=== PATIENT | male | born 1960 | race Caucasian/White ===

== ENCOUNTER → 2021-01-09 10:54 | Outpatient (BNVA) | payer OTHER, SELFPAY | PROVIDERS: Visit Provider Specialist | DX: G56.03 Carpal tunnel syndrome, bilateral upper limbs (principal); R20.0 Anesthesia of skin | CPT/HCPCS: 95910 ==

== ENCOUNTER → 2022-05-03 14:15 | Outpatient (BNVA) | payer OTHER, SELFPAY | PROVIDERS: Visit Provider Surgery | DX: K40.90 Unilateral inguinal hernia, without obstruction or gangrene, not specified as recurrent (principal) | CPT/HCPCS: 99203 ==

== ENCOUNTER 2022-05-29 06:58 | Day surgery (SDC) | payer OTHER, SELFPAY ==
[2022-05-28 09:01] VITALS: BMI 28.7
[2022-05-29] VITALS (10 sets, daily range): BP systolic 131–175; BP diastolic 70–99; PULSE 65–72; RESP 8–19; TEMP 36.1–36.6; O2SAT 90–97
[2022-05-29] MEDS: sodium chloride 0.9% 1,000 ML 30 ML IV (07:46)
[2022-05-29] MEDS: heparin 5,000 unit/mL INJ 1 mL 2000 UNIT SUBCUT (07:47)
[2022-05-29] MEDS: diphenhydrAMINE 50 mg/mL SDV 1mL 12.5 MG IVP (07:48)
[2022-05-29] MEDS: acetaminophen 1,000 MG/100 ML PIGGYBACK 400 MG IV (07:48)
--- NOTE | 2022-05-29 08:06 | ANES.PREANE2 ---
Pre-Anesthetic Assessment Height/Weight: Height 1.78 m Weight 90.718 kg Temp Pulse Resp BP Pulse Ox O2 Del Method 97.2 F L 66 16 156/99 97 05/29/22 07:25 05/29/22 07:25 05/29/22 07:25 05/29/22 07:25 05/29/22 07:25 05/29/22 07:31 Preop Diagnosis: Left groin hernia Operation Date: 05/29/22 09:05 Proposed Procedures p lap left inguinal hernia repair K40.90 [id number](Left) - Trey Colbert MD Familial anesthetic complications: None Was Beta Denise taken within 24 hours: N/A Was Clonidine taken within 24 hours: N/A Last intake: Intake Last Liquid Date 05/28/22 Last Liquid Time 20:00 Last Solid Date 05/28/22 Last Solid Time 19:00 Social No alcohol and No tobacco Exam alert, oriented x 3, clear to auscultation bilaterally and regular rate & rhythm Airway Mallampati: Class III Dentition: other (missing) CV/HEM Hypertension Anesthetic Plan ASA status: 2 Anesthesia: General Risk of > 500 ml blood loss (7ml/kg in children): No Medications/Allergies Home Medications Medication Instructions Recorded Confirmed Last Taken Type amlodipine 5 mg tablet 5 mg PO DAILY 05/03/22 05/29/22 05/28/22 History venlafaxine 75 mg capsule,extended 75 mg PO DAILY 05/03/22 05/29/22 05/28/22 History release 24 hr Allergies Allergy/AdvReac Type Severity Reaction Status Date / Time indomethacin Allergy Intermediate bruising/ag Verified 05/29/22 07:21 gitated atorvastatin [From Lipitor] Allergy Swelling Verified 05/29/22 07:21 Current Medications Generic Name Dose Route Start Last Admin Trade Name Freq PRN Reason Stop Dose Admin Sodium Chloride 1,000 mls @ 30 mls/hr 05/29/22 07:30 05/29/22 07:46 Sodium Chloride 0.9% IV 05/30/22 07:29 30 mls/hr .Q24H SONNY Administration PFSH Anesthesia Social History Smoking and tobacco status: former smoker Data Anesthesia Cardiac Studies: No Data to Display
--- NOTE | 2022-05-29 08:58 | W.PM.OPSUD ---
Surgery/Procedure H&P Update DATE OF PROCEDURE: May 29, 2022 DATE H&P PERFORMED: 05/03/22 H&P UPDATE INFORMATION: I have reviewed H&P completed within last 30 days, I have examined patient prior to procedure and No changes to prior documentation PREOP DIAGNOSIS: Left groin hernia PRIMARY INDICATION FOR PROCEDURE: The same PLANNED PROCEDURE: Operation Date: 05/29/22 09:05 Proposed Procedures p lap left inguinal hernia repair K40.90 [id number](Left) - Trey Colbert MD
[2022-05-29] MEDS: ceFAZolin 2,000 MG in sodium chloride 0.9% (plus) 50 ML 100 MG IV (09:18)
--- NOTE | 2022-05-29 11:01 | PM.OP ---
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 Time-out was done verifying the patient's name/date of /planned procedure destination after the procedure, all were in agreement. SCDs confirmed to be functioning, preoperative antibiotics administered per protocol, and beta hannah protocol was confirmed. A vertical skin incision of 1.2 cm was made with 11 blade knife through the supra umbilicus , incision was carried down to the subcutaneous tissue and deepened to identify the anterior fascia, two stay sutures were applied to the fascia, and safe entrance to the abdominal cavity was achieved, a Millard trocar technique safe entry to the abdominal cavity was achieved verified by using 10 mm zero degree laparoscopy, switched to a 30 degrees scope,low flow followed by a higher flow of CO2 gas up to 15 mmHg. There was no evidence of injury to intra-abdominal structures from the port entry, attention was deviated to both groins, there was a large indirect hernia defect with herniation of peritoneum and preperitoneal fat was noted on the left side, two 5 mm ports were placed on the right and left lateral aspect of the abdomen slightly above the level of the umbilicus, under direct visualization, Exparel Was used at the site of the incisions Prior to trocar insertions. The peritoneum above the level of the iliopubic tract was incised to the Left of the midline and dissection was performed to create a preperitoneal space medial to lateral aspect up to anterior superior iliac spine on the Left side. Dissection was continued onto the medial aspect and the Left spermatic was identified, there was evidence of indirect inguinal hernia the sac was dissected. As it applied medial to the Left inferior epigastric vessels/ dissection was performed to clear the space lateral to the spermatic cord and dorsomedial to it, the hernia sac was reduced and retracted far back, so there was an evidence of a small direct inguinal hernia that was dissected in addition to lipoma of the cord that was excised and sent for permanent pathology. Then a large Left 3-D mesh was rolled and placed into the abdominal cavity through the Millard port, after the mesh was introduced it was positioned to lie in the myopectineal orifice and the mesh was unrolled and this covered the entire my myope pectineal orifice. Intra-abdominal pressure was dropped to 12 mmHg to help placement of the mesh good position On the lateral aspect of the mesh extended up to the anterior superior iliac spine on the medial aspect the mesh crossed the midline onto the Right side, then using absorbable tacks, placed above the iliopubic tract onto the rectus abdominis muscle on the medial aspect and also to the lateral abdominal wall superomedial to the sacroiliac spine, then the mesh was also anchored to the pubis and the Indra's ligament inferiorly. The peritoneal leaflets were then brought together to cover the mesh and isolated from the other viscera, extra tacks were used to secure the peritoneum in good position. There was serosal attachments of the sigmoid colon to the peritoneum that was taken down using sharp dissection,Oozing was appreciated onto the colonic wall so a [id number] 2-0 silk sutures was done under direct visualization for hemostasis. Final look demonstrated good hemostasis and the mesh in good position. A total of 20 mL Exparel 40 ml Normal saline 20 ml bupivacaine 0.25% were injected at the remaining of the tacks site and trocar sites as well Final look demonstrated good hemostasis.Then the fascia on the supra umbilical fascial defect was closed using #1 PDS sutures under direct visualization using fascial closure device Arvin Mathew.All ports were removed,then the abdomen was desufflated. All skin incisions were closed with 4-0 Monocryl subcuticular suture and Dermabond was applied. The patient tolerated the procedure well, Pelletier catheter was taken out ,got extubated and was transferred to the recovery area in stable condition All counts of instruments, needles and sponges were completed I was present for the whole entire procedure
[2022-05-29] MEDS: HYDROcodone-acetaminophen 5-325 mg Tablet 1 TAB PO (11:53)
--- NOTE | 2022-05-29 16:22 | ANE.PACU2 ---
Inpatient post-anesthesia follow up: Airway intact: Yes Vital signs: Temperature 97.3 F Pulse Rate 70 Respiratory Rate 18 Blood Pressure 152/92 Pulse Oximetry 94 Oxygen Delivery Me thod Room Air Oxygen Flow Rate 8 Fraction of Inspir ed Oxygen Hydration adequate: Yes Nausea and vomiting: No Pain level: 1 Mental status: Baseline
== END 2022-05-29 12:20 | disposition home or self-care (01) ==
PROVIDERS: Visit Provider Surgery
PROC: (CPT 49650; principal; 2022-05-29 08:55)
DX: K40.90 Unilateral inguinal hernia, without obstruction or gangrene, not specified as recurrent (principal); D17.6 Benign lipomatous neoplasm of spermatic cord; I10 Essential (primary) hypertension; Z87.891 Personal history of nicotine dependence
CPT/HCPCS: 49505; 51702; 88304; C1781; C9290; J0131; J0690; J1100; J1170; J1200; J1644; J2405; J2704; J2710; J3010; J3490; J7030

== ENCOUNTER → 2022-06-04 13:35 | Outpatient (BNVA) | payer OTHER, SELFPAY | PROVIDERS: PCP Family Medicine; Visit Provider Surgery | DX: Z09 Encounter for follow-up examination after completed treatment for conditions other than malignant neoplasm (principal) | CPT/HCPCS: 99024 ==

== ENCOUNTER 2023-08-23 12:58 | Outpatient (CLI) | payer OTHER, SELFPAY ==
--- NOTE | 2023-08-23 13:04 | MR_ITS ---
WS: [id number] MRI CERVICAL SPINE NONCONTRAST HISTORY: CERVICAL RADICULOPATHY COMPARISON: None available. Technique: Multiplanar, multisequence noncontrast imaging of the cervical spine. Normal cervical alignment with no compression fracture or significant disc space narrowing. Signal within the cervical cord is normal. Visualized posterior fossa is unremarkable. Craniocervical junction, C1 and C2 relationship, odontoid process and soft tissues are normal. C2-C3: Small foraminal osteophytes and facet arthritis. Mild LEFT foraminal narrowing. C3-C4: Mild annular disc bulging with osteophytic ridging and foraminal osteophytes. Mild central and bilateral foraminal stenosis. Small amount of marrow edema in the RIGHT C4 inferior articular facet. C4-C5: Mild disc bulging and facet arthritis. There is a small amount of marrow edema in the RIGHT C5 inferior articular facet. Small amount of fluid in the perifacet location on the RIGHT at C4-5. C5-C6: Diffuse osteophytic ridging with a central disc protrusion. Effacement of CSF and osteophytic ridging. Bilateral facet joint arthritis. Moderate central with moderate to severe bilateral foramina l stenosis. C6-C7: Osteophytic ridging with disc bulging and a central disc protrusion. Mild central and bilatera l foraminal stenosis. C7-T1: Normal. Paraspinal soft tissue are normal. IMPRESSION: 1. No acute vertebral body fractures. 2. C5-6: Moderate central with moderate to severe bilateral foraminal stenosis due to disc, osteophy te and facet disease. 3. C3-4 and C6-7: Mild central and bilateral foraminal stenosis. 4. Marrow edema in the RIGHT inferior articulating facets of C4 and C5 with perifacet edema. May be posttraumatic or related to synovitis. No fracture identified by MRI.
== END 2023-08-23 12:59 | disposition home or self-care (01) ==
LOC: RAD 12:58
PROVIDERS: PCP Family Medicine; Visit Provider Family Medicine
DX: M48.02 Spinal stenosis, cervical region (principal); M50.122 Cervical disc disorder at C5-C6 level with radiculopathy; M25.78 Osteophyte, vertebrae; G95.19 Other vascular myelopathies
CPT/HCPCS: 72141

== ENCOUNTER → 2023-09-24 11:05 | Outpatient (BNVA) | payer OTHER, SELFPAY | PROVIDERS: PCP Family Medicine; Referring Provider Family Medicine; Visit Provider Specialist | DX: R55 Syncope and collapse (principal); R26.9 Unspecified abnormalities of gait and mobility; M48.062 Spinal stenosis, lumbar region with neurogenic claudication; M54.2 Cervicalgia; R29.90 Unspecified symptoms and signs involving the nervous system; M47.12 Other spondylosis with myelopathy, cervical region | CPT/HCPCS: 99205 ==

== ENCOUNTER 2023-10-24 13:42 | Outpatient (CLI) | payer OTHER, SELFPAY ==
--- NOTE | 2023-10-24 14:45 | MR_ITS ---
WS: [id number] MRI HEAD WITHOUT CONTRAST TECHNIQUE: Sagittal T1, T2 axial, T2 axial FLAIR, axial and coronal T1 images, axial susceptibility w eighted imaging, axial diffusion weighted images, and coronal T2 images were obtained. CLINICAL INFORMATION: R55 - Syncope and collapse COMPARISON: None. FINDINGS: No evidence of restricted diffusion to suggest acute ischemia. Ventricular system and basal cisterns are patent. Moderate small vessel changes. Mild/moderate parenchymal volume loss. Small vessel change s in the liang. Normal posterior fossa. Normal vascular flow voids at the skull base. No extra-axial f luid collections. No evidence of mass or mass effect. Paranasal sinuses are well aerated. Mastoid air cells are well aerated. Normal posterior nasopharynx. No hemosiderin on the susceptibility weighted images. Moderate symmetric atrophy temporal lobes and h ippocampal formations. Normal optic chiasm and pituitary infundibulum. IMPRESSION: 1. No evidence of restricted diffusion to suggest acute ischemia. 2. Moderate small vessel changes with mild to moderate parenchymal volume loss. 3. Small vessel changes in the liang. 4. Moderate symmetric atrophy temporal lobes and hippocampal formations. 5. No hemosiderin on susceptibility-weighted images. 6. No other acute findings.
--- NOTE | 2023-10-24 15:30 | MR_ITS ---
WS: [id number] MRI LUMBAR SPINE NONCONTRAST TECHNIQUE: Sagittal T1, T2 and STIR imaging. Axial T1 and T2 imaging. CLINICAL INFORMATION: M48.062 - Spinal stenosis, lumbar region with neurogenic ... COMPARISON: None. FINDINGS: Mild lumbar curve. No acute compression. Disc bulging worse at L2-3. Disc space narrowing worse at L4 -5. L1-L2: Mild annular bulging. Slight narrowing RIGHT subarticular recess. Mild facet arthropathy. Mild RIGHT foraminal narrowing. LEFT foramen is patent. L2-L3: Mild disc bulging with mild to moderate narrowing of the thecal sac. Moderate facet arthropath y and ligamentum flavum hypertrophy with prominent epidural fat. Mild to moderate LEFT and no signifi cant RIGHT foraminal narrowing. Endplate Schmorl's node L2. L3-L4: Mild disc bulging with narrowing of the subarticular recess bilaterally. Prior laminectomy def ects. Moderate facet arthropathy. Small bilateral foraminal protrusions with mild bilateral foraminal narrowing. L4-L5: Mild annular bulging. Moderate central canal stenosis with impingement on the traversing RIGHT greater than LEFT L5 nerve roots in the subarticular recess. Moderate facet arthropathy with ligamen epifanio flavum hypertrophy. Remote laminectomy defects. RIGHT foraminal protrusion impinges the exiting R IGHT L4 nerve root with mild to moderate RIGHT foraminal narrowing. LEFT foramen is patent. L5-S1: Mild annular bulging. Slight effacement of the ventral thecal sac. Mild LEFT and no significan t RIGHT foraminal narrowing. Advanced facet arthropathy. Visualized pelvic bony structures: Normal. Paravertebral soft tissues: Normal. IMPRESSION: 1. Mild lumbar curve. No acute compression. Disc space narrowing worse at L4-5. 2. Moderate central canal stenosis L4-5 with small central protrusion in combination with facet arth ropathy and ligamentum flavum hypertrophy. Impingement RIGHT greater than LEFT subarticular recess. R emote laminectomy defect at this level. 3. Mild to moderate narrowing of the thecal sac at L2-3 due to disc bulging in combination with face t arthropathy and ligamentum flavum hypertrophy. Prominent epidural fat contributes to stenosis. 4. Mild narrowing of the subarticular recess bilaterally L3-4. 5. Mild RIGHT greater than LEFT L3-4 foraminal narrowing with small foraminal protrusions. 6. Mild to moderate LEFT L2-3 and RIGHT L4-5 foraminal narrowing. 7. Mild LEFT L5-S1 bony foraminal narrowing. 8. Moderate facet arthropathy L3-L4 and L4-L5. Advanced facet arthropathy L5-S1.
== END 2023-10-24 13:43 | disposition home or self-care (01) ==
LOC: RAD 13:43
PROVIDERS: PCP Family Medicine; Visit Provider Specialist
DX: M48.062 Spinal stenosis, lumbar region with neurogenic claudication (principal); M47.897 Other spondylosis, lumbosacral region; R26.9 Unspecified abnormalities of gait and mobility; R55 Syncope and collapse; G31.89 Other specified degenerative diseases of nervous system
CPT/HCPCS: 70551; 72148

== ENCOUNTER → 2023-12-27 12:44 | Outpatient (BNVA) | payer OTHER, SELFPAY | PROVIDERS: PCP Family Medicine; Visit Provider Specialist | DX: R55 Syncope and collapse (principal); R26.9 Unspecified abnormalities of gait and mobility; M48.062 Spinal stenosis, lumbar region with neurogenic claudication; G37.9 Demyelinating disease of central nervous system, unspecified; R07.9 Chest pain, unspecified; M47.12 Other spondylosis with myelopathy, cervical region; R29.90 Unspecified symptoms and signs involving the nervous system | CPT/HCPCS: 99214 ==

== ENCOUNTER 2024-02-18 06:00 | Outpatient (RCR) | payer OTHER, SELFPAY | END 2024-02-29 18:00 | disposition home or self-care (01) | LOC: MPT 06:00 | PROVIDERS: Visit Provider Family Medicine | DX: M54.2 Cervicalgia (principal) | CPT/HCPCS: 97110; 97140; 97161; G0283 ==

== ENCOUNTER 2024-03-01 06:00 | Outpatient (RCR) | payer OTHER, SELFPAY | END 2024-03-30 23:59 | disposition home or self-care (01) | LOC: MPT 06:00 | PROVIDERS: Visit Provider Family Medicine | DX: M54.2 Cervicalgia (principal) | CPT/HCPCS: 97110; 97140; G0283 ==

== ENCOUNTER 2024-03-31 06:00 | Outpatient (RCR) | payer OTHER, SELFPAY | END 2024-04-30 23:59 | disposition home or self-care (01) | LOC: MPT 06:00 | PROVIDERS: Visit Provider Family Medicine | DX: M54.2 Cervicalgia (principal) | CPT/HCPCS: 97110; 97140; G0283 ==

== ENCOUNTER → 2024-04-29 13:44 | Outpatient (BNVA) | payer OTHER, MEDICAID, SELFPAY | PROVIDERS: Visit Provider Specialist | DX: R55 Syncope and collapse (principal); R26.9 Unspecified abnormalities of gait and mobility; M48.062 Spinal stenosis, lumbar region with neurogenic claudication; M54.2 Cervicalgia; G37.9 Demyelinating disease of central nervous system, unspecified; R07.9 Chest pain, unspecified; M47.12 Other spondylosis with myelopathy, cervical region; R29.90 Unspecified symptoms and signs involving the nervous system; R03.0 Elevated blood-pressure reading, without diagnosis of hypertension; G47.30 Sleep apnea, unspecified; F43.10 Post-traumatic stress disorder, unspecified | CPT/HCPCS: 99214 ==

== ENCOUNTER 2024-05-29 13:38 | Outpatient (CLI) | payer OTHER, SELFPAY ==
--- NOTE | 2024-05-29 14:00 | USCV_ITS ---
Wilberto Edward Age: 63 Gender: M : 1960 Exam Date: 05/29/2024 14:01 Ordering Phys: Swapna Cross MD Technologist: NEREIDA [place] [facility] [place] S[place]ope Risk Factors: Previous Vascular Surgery: Right Brachial BP: / Left Brachial BP: / Right Left Velocity (cm/s) Spectral Plaque Velocity (cm/s) Spectral Plaque Syst/Diast Broadening Syst/Diast Broadening 68.70/ 19.40 Prox CCA 72.50 / 19.40 68.20/ 19.60 Mid CCA 58.40 / 14.00 66.70/ 19.10 Distal CCA 65.00 / 15.60 63.80/ 22.50 Prox ICA 38.20 / 13.00 56.40/ 21.30 Mid ICA 67.90 / 26.00 51.20/ 18.30 Distal ICA 63.80 / 27.30 43.90 ECA 44.10 1.00 ICA/CCA 1.00 Antegrade Vertebral Antegrade 39.50/ 12.50 cm/s 37.10/ 13.30 cm/s Bi Subclavian Tri 65.50 86.10 CONCLUSIONS Right ICA stenosis <50%. Mild atheromatous plaque right carotid bulb/ICA. Left ICA stenosis <50%. Mild atheromatous plaque left carotid bulb/ICA. Intimal thickening in the common carotid arteries and internal carotid arteries bilaterally. Normal antegrade Doppler flow noted in the right vertebral artery. Normal antegrade Doppler flow noted in the left vertebral artery. Nikolay Cloud MD (Electronically Signed) Final Date: 29 May 2024 14:55 S
== END 2024-05-29 13:39 | disposition home or self-care (01) ==
LOC: RAD 13:39
PROVIDERS: PCP Family Medicine; Visit Provider Specialist
DX: I65.23 Occlusion and stenosis of bilateral carotid arteries (principal); R55 Syncope and collapse; R26.9 Unspecified abnormalities of gait and mobility; G37.9 Demyelinating disease of central nervous system, unspecified
CPT/HCPCS: 93880

== ENCOUNTER → 2024-08-24 14:08 | Outpatient (BNVA) | payer OTHER, SELFPAY | PROVIDERS: PCP Family Medicine; Referring Provider Family Medicine; Visit Provider Nurse Practitioner Family | DX: L57.8 Other skin changes due to chronic exposure to nonionizing radiation (principal); L81.4 Other melanin hyperpigmentation; D18.01 Hemangioma of skin and subcutaneous tissue | CPT/HCPCS: 99203 ==